=== PATIENT | male | born 1970 | race American Indian/Alaskan Native ===

== ENCOUNTER 2016-11-15 14:53 | Emergency (ER) | payer SELFPAY ==
[2016-11-15 15:23] VITALS: BP 125/78
== END 2016-11-15 16:46 | disposition left against medical advice (07) ==
LOC: ED 14:53
DX: M54.5 Low back pain (principal); Z53.21 Procedure and treatment not carried out due to patient leaving prior to being seen by health care provider

== ENCOUNTER 2016-12-24 09:47 | Emergency (ER) | payer SELFPAY ==
[2016-12-24] MEDS ORDERED: MOTRIN ONE (10:49)
[2016-12-24] MEDS ORDERED: MOTRIN PO ONE (10:56)
--- NOTE | 2016-12-24 13:12 | Emergency Department Report ---
- General Chief Complaint: Upper Respiratory Infection Stated Complaint: FLU LIKE SX Source: patient Mode of arrival: Ambulatory Limitations: No Limitations - History of Present Illness Initial Comments: 46-year-old male comes in for flulike symptoms. Patient reports fevers chills denies any nausea no vomiting. He reports he has chest burning in the epigastric discomfort. This is been going on for a few days. Was noted that his temperature is 102 in triage. He was given antipyretics medication. Patient reports no past medical history of anything significant going takes no medications. MD Complaint: fever, cough - Related Data Previous Rx's Medication Instructions Recorded Last Taken Type Amoxicillin [Amoxicillin TAB] 875 mg PO BID #10 tablet 12/24/16 Unknown Rx Famotidine [Pepcid] 20 mg PO ONCE #30 tablet 12/24/16 Unknown Rx Ibuprofen [Motrin 600 MG tab] 600 mg PO Q8H PRN #60 tablet 12/24/16 Unknown Rx Allergies Allergy/AdvReac Type Severity Reaction Status Date / Time No Known Allergies Allergy Unverified 12/24/16 10:49 ED Review of Systems ROS: Stated complaint: FLU LIKE SX Other details as noted in HPI Constitutional: chills, fever Gastrointestinal: abdominal pain (epigastric tenderness). denies: nausea, vomiting Genitourinary: denies: dysuria Musculoskeletal: denies: back pain Neurological: denies: headache ED Past Medical Hx - Past Medical History Hx Psychiatric Treatment: Yes (anxiety, PTSD, insomnia) Additional medical history: tachycardia - Surgical History Additional Surgical History: R knee, spinal - Social History Smoking Status: Current Every Day Smoker Substance Use Type: None, Alcohol - Medications Home Medications: Home Medications Medication Instructions Recorded Confirmed Last Taken Type Amoxicillin [Amoxicillin TAB] 875 mg PO BID #10 tablet 12/24/16 Unknown Rx Famotidine [Pepcid] 20 mg PO ONCE #30 tablet 12/24/16 Unknown Rx Ibuprofen [Motrin 600 MG tab] 600 mg PO Q8H PRN #60 tablet 12/24/16 Unknown Rx ED Physical Exam - General Limitations: No Limitations General appearance: alert, in no apparent distress - Head Head exam: Present: atraumatic, normocephalic - Eye Eye exam: Present: normal appearance, PERRL, EOMI - ENT ENT exam: Present: mucous membranes moist, TM's normal bilaterally - Neck Neck exam: Present: normal inspection, full ROM. Absent: tenderness, lymphadenopathy - Respiratory Respiratory exam: Present: normal lung sounds bilaterally. Absent: respiratory distress, wheezes, rales, rhonchi - Cardiovascular Cardiovascular Exam: Present: regular rate, normal rhythm, normal heart sounds - GI/Abdominal GI/Abdominal exam: Present: soft, normal bowel sounds. Absent: distended, tenderness ED Course Vital Signs 12/24/16 12/24/16 10:44 14:48 Temperature 102.4 F H 98.2 F Pulse Rate 96 H 80 Respiratory 20 14 Rate Blood Pressure 111/74 Blood Pressure 99/60 [Right] O2 Sat by Pulse 100 99 Oximetry ED Medical Decision Making - Lab Data Result diagrams: 12/24/16 13:28 12/24/16 13:28 - Medical Decision Making Since been evaluated by this provider fast track chest x-ray was done which was normal. Motrin was given to the patient for antipyretic which he reports he feels better. We will place patient on famotidine 40 mg by mouth now and discharge him on famotidine 20 mg daily for a few days and have him follow with the primary care provider. As well as all cover him with amoxicillin for respiratory infection. She verbalized understanding Critical care attestation.: If time is entered above; I have spent that time in minutes in the direct care of this critically ill patient, excluding procedure time. ED Disposition Clinical Impression: Upper respiratory infection Qualifiers: URI type: unspecified URI Qualified Code(s): J06.9 - Acute upper respiratory infection, unspecified Acid reflux Qualifiers: Esophagitis presence: without esophagitis Qualified Code(s): K21.9 - Gastro- esophageal reflux disease without esophagitis Disposition: DISCHARGED TO HOME OR SELFCARE Is pt being admited?: No Does the pt Need Aspirin: No Condition: Stable Instructions: Upper Respiratory Infection (ED), Gastroesophageal Reflux Disease (ED) Additional Instructions: Complete antibiotics as prescribed and take an acid medicine when necessary. Follow-up the primary care provider if symptoms persist. Prescriptions: Amoxicillin [Amoxicillin TAB] 875 mg PO BID #10 tablet Famotidine [Pepcid] 20 mg PO ONCE #30 tablet Ibuprofen [Motrin 600 MG tab] 600 mg PO Q8H PRN #60 tablet PRN Reason: Pain Referrals: PRIMARY CARE,MD [Primary Care Provider] - 3-5 Days [facility] [Outside] - 3-5 Days Forms: Work/School Release Form(ED)
[2016-12-24 13:55] LABS: Hematocrit 40.3 % (35.5-45.6); Hemoglobin 13.2 gm/dl (11.8-15.2); Mean Corpuscular HGB Conc 33 % (32-34); Mean Corpuscular Hemoglobin 31 pg (28-32); Mean Corpuscular Volume 96 fl (84-94); Platelet Count 241 K/mm3 (140-440); Red Blood Count 4.22 M/mm3 (3.65-5.03); Red Cell Distribution Width 13.3 % (13.2-15.2); White Blood Count 7.8 K/mm3 (4.5-11.0)
[2016-12-24 14:13] LABS: Anion Gap 17 mmol/L; Blood Urea Nitrogen 3 mg/dL (9-20); Calcium 8.4 mg/dL (8.4-10.2); Carbon Dioxide 26 mmol/L (22-30); Chloride 98.7 mmol/L (98-107); Glucose 95 mg/dL (75-100); Potassium 3.7 mmol/L (3.6-5.0); Sodium 138 mmol/L (137-145)
--- NOTE | 2016-12-24 15:42 | XRay Report ---
Chest 2 views: History: Chest pain with cough. Findings: Normal cardiomediastinal silhouette no consolidation, pneumothorax or pleural effusion. Impression: No acute cardiopulmonary findings.
[2016-12-24 16:20] VITALS: BP 99/60
[2016-12-24] MEDS ORDERED: PEPCID PO ONE (16:44)
== END 2016-12-24 17:20 | disposition home or self-care (01) ==
LOC: ED 09:47
DX: K21.9 Gastro-esophageal reflux disease without esophagitis (principal); J06.9 Acute upper respiratory infection, unspecified; R00.0 Tachycardia, unspecified; F17.200 Nicotine dependence, unspecified, uncomplicated
CPT/HCPCS: 36415; 71020; 80048; 85027; 87400

== ENCOUNTER 2017-05-26 09:13 | Emergency (ER) | payer SELFPAY ==
[2017-05-26 09:21] VITALS: BP 138/92
[2017-05-26] MEDS ORDERED: MOTRIN PO ONE (10:23)
--- NOTE | 2017-05-26 15:20 | Emergency Department Report ---
Entered by HENNA DE LA ROSA, acting as scribe for ALBANIA MEDINA NP. ED Back Pain/Injury HPI - General Chief Complaint: Back Pain/Injury Stated Complaint: LOWER BACK PAIN Time Seen by Provider: 05/26/17 09:31 Source: patient Mode of arrival: Ambulatory Limitations: No Limitations - History of Present Illness Initial Comments: This is a 46 y/o male patients well-nourished with nontoxic or ill in appearance presents to the ED for evaluation of intermittent right sided thoracic spinal pain that started while working. The pain initially started (3 days ago). 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 The pain is described as sharp, aching and throbbing. Initially the pain was mild, but has progressed and worsened. He denies neck pain, nausea, vomiting , polyuria, urinary urgency, CP, sOB, stiff neck, abd pain, n/v, numbness, tingling, or dysuria. Pt states he felt like he pulled a muscle while at work. He denies injury or trauma. Denies any allergies. Denies PMH. MD Complaint: back pain Onset/Timin -: Gradual, days(s) Similar Symptoms Previously: No Place: work Radiation: none Severity: moderate Quality: sharp, aching, other (throbbing) Consistency: constant Improves With: none Worsens With: none Context: while lifting Associated Symptoms: denies other symptoms. denies: confusion, weakness, chest pain, numbness, difficulty walking, cough, difficulty urinating, diaphoresis, incontinence, fever/chills, constipation, headaches, abdominal pain, loss of appetite, malaise, nausea/vomiting, rash, seizure, shortness of breath, syncope - Related Data Previous Rx's Medication Instructions Recorded Last Taken Type Amoxicillin [Amoxicillin TAB] 875 mg PO BID #10 tablet 12/24/16 Unknown Rx Famotidine [Pepcid] 20 mg PO ONCE #30 tablet 12/24/16 Unknown Rx Ibuprofen [Motrin 600 MG tab] 600 mg PO Q8H PRN #60 tablet 12/24/16 Unknown Rx Cyclobenzaprine [Flexeril] 10 mg PO TID PRN #15 tablet 05/26/17 Unknown Rx Ibuprofen [Motrin 600 MG tab] 600 mg PO Q8H PRN #20 tablet 05/26/17 Unknown Rx Allergies Allergy/AdvReac Type Severity Reaction Status Date / Time No Known Allergies Allergy Unverified 12/24/16 10:49 ED Review of Systems Comment: All other systems reviewed and negative Constitutional: no symptoms reported. denies: chills, fever Eyes: denies: eye pain, eye discharge, vision change ENT: denies: ear pain, throat pain Respiratory: denies: cough, shortness of breath Cardiovascular: denies: chest pain, palpitations Endocrine: no symptoms reported Gastrointestinal: denies: abdominal pain, nausea, vomiting Genitourinary: denies: urgency, dysuria Musculoskeletal: back pain Skin: denies: rash Neurological: denies: headache, weakness, numbness, abnormal gait Psychiatric: denies: anxiety, depression Hematological/Lymphatic: denies: easy bleeding, easy bruising ED Past Medical Hx - Past Medical History Hx Psychiatric Treatment: Yes (anxiety, PTSD, insomnia) Additional medical history: tachycardia - Surgical History Additional Surgical History: R knee, spinal - Social History Smoking Status: Current Every Day Smoker Substance Use Type: Alcohol - Medications Home Medications: Home Medications Medication Instructions Recorded Confirmed Last Taken Type Amoxicillin [Amoxicillin TAB] 875 mg PO BID #10 tablet 12/24/16 Unknown Rx Famotidine [Pepcid] 20 mg PO ONCE #30 tablet 12/24/16 Unknown Rx Ibuprofen [Motrin 600 MG tab] 600 mg PO Q8H PRN #60 tablet 12/24/16 Unknown Rx Cyclobenzaprine [Flexeril] 10 mg PO TID PRN #15 tablet 05/26/17 Unknown Rx Ibuprofen [Motrin 600 MG tab] 600 mg PO Q8H PRN #20 tablet 05/26/17 Unknown Rx ED Physical Exam - General Limitations: No Limitations General appearance: alert, in no apparent distress, other (The patient is a well -developed, well-nourished, in no apparent distress) - Head Head exam: Present: atraumatic, normocephalic - Eye Eye exam: Present: normal appearance, PERRL, EOMI, other (PERRL, Extraocular muscles are intact. Pupils are equal, round, and reactive to light and accommodation.). Absent: scleral icterus, conjunctival injection, nystagmus, periorbital swelling, periorbital tenderness Pupils: Present: normal accommodation - ENT ENT exam: Present: normal exam, normal orophraynx, mucous membranes moist, TM's normal bilaterally, other ( Nares appeared normal. Mouth is well hydrated and without lesions. Mucous membranes are moist. Posterior pharynx clear of any exudate or lesions) - Neck Neck exam: Present: normal inspection, full ROM, other (Supple. No carotid bruits. No lymphadenopathy or thyromegaly.nontender. No meningitic signs are noted.). Absent: tenderness, meningismus, lymphadenopathy - Respiratory Respiratory exam: Present: normal lung sounds bilaterally, other (Clear to auscultation. Non labor breathing. No intercostal retractions.). Absent: respiratory distress, wheezes, rales, rhonchi, stridor, chest wall tenderness, accessory muscle use, decreased breath sounds, prolonged expiratory - Cardiovascular Cardiovascular Exam: Present: regular rate, normal rhythm, normal heart sounds. Absent: bradycardia, tachycardia, irregular rhythm, systolic murmur, diastolic murmur, rubs, gallop - GI/Abdominal GI/Abdominal exam: Present: soft. Absent: distended, tenderness (Positive bowel sounds. No hepatosplenomegaly was noted. No guarding or rebound tenderness, negative epigastric bruit. Negative psoas sign, negative perez sign , negative McBurneys sign), rebound, rigid, normal bowel sounds, diminished bowel sounds - Extremities Exam Extremities exam: Present: normal inspection, full ROM, normal capillary refill , other (Without any cyanosis, clubbing, rash, lesions or edema. Peripheral pulses intact. Capillary refill less than 2 seconds. ). Absent: tenderness, pedal edema, joint swelling, calf tenderness - Back Exam Back exam: Present: normal inspection, full ROM, paraspinal tenderness ( thoracic ). Absent: tenderness, CVA tenderness (R), CVA tenderness (L), muscle spasm, vertebral tenderness, rash noted - Neurological Exam Neurological exam: Present: alert, oriented X3, CN II-XII intact, normal gait, other (Cranial nerves II through XII are grossly intact. Alert and oriented x 3. Normal gait. Symmetrical strength and sensation. Reflexes 2+ throughout. Cerebellar testing normal. GCS score of 15.) - Psychiatric Psychiatric exam: Present: normal affect, normal mood, other ( Normal affect with no suicidal or homicidal ideations.) - Skin Skin exam: Present: warm, dry, intact, other (No ulceration or induration present.). Absent: rash ED Course Vital Signs 05/26/17 09:18 Temperature 98.6 F Pulse Rate 93 H Respiratory 20 Rate Blood Pressure 138/92 O2 Sat by Pulse 100 Oximetry - Reevaluation(s) Reevaluation #1: 05/26/17 10:29 Patient is speaking in full sentences with no signs of distress noted. ED Medical Decision Making - Medical Decision Making Ed course: This is a 46-year-old male that presents with throacic spinal strain 1- patient was examined by myself. Upon exam there was no tenderness over the thoracic or lumbar or cervical spinal region. Paraspinal tenderness to the right side of the thoracic spinal region. I will treat the patient with Flexeril for muscle spasm. Patient also be treated with ibuprofen for pain. Patient received ibuprofen 800 mg by mouth ED . 2- patient was instructed to follow-up with his primary care doctor in 3-5 days or if symptoms worsen bladder or bowel stability, chest pain, short of breath, numbness or tingling sensation in extremities, headache, dizziness, visual changes, nausea vomiting, or abdominal pain, and continue return to the emergency room as was possible. 3- at time time of discharge, the patient does not seem toxic or ill in appearance. No acute signs of distress noted. Patient agrees to discharge treatment plan of care. No further questions noted by the patient. ED Disposition Clinical Impression: Muscle spasm, Strain of thoracic region Disposition: DC-01 TO HOME OR SELFCARE Is pt being admited?: No Does the pt Need Aspirin: No Condition: Stable Instructions: Ibuprofen (By mouth), Muscle Strain (ED), Muscle Spasm (ED) Additional Instructions: follow-up with your primary care doctor in 3-5 days or if symptoms worsen bladder or bowel stability, chest pain, short of breath, numbness or tingling sensation in extremities, headache, dizziness, visual changes, nausea vomiting, or abdominal pain, and continue return to the emergency room as was possible. Take ibuprofen and Flexeril as prescribed. Do not operate heavy machinery while taking Flexeril due to sedation Prescriptions: Cyclobenzaprine [Flexeril] 10 mg PO TID PRN #15 tablet PRN Reason: Muscle Spasm Ibuprofen [Motrin 600 MG tab] 600 mg PO Q8H PRN #20 tablet PRN Reason: Pain Referrals: PRIMARY CARE, [Primary Care Provider] - 3-5 Days CAROLE ROSENTHAL JR, MD [Staff Physician] - 3-5 Days [facility] [Outside] - 3-5 Days [facility] [Outside] - 3-5 Days Forms: Work/School Release Form(ED) This documentation as recorded by the ESTRELLA stiles SHALANE,accurately reflects the service I personally performed and the decisions made by me,ALBANIA MEDINA, VP [employer].
== END 2017-05-26 11:14 | disposition home or self-care (01) ==
LOC: ED 09:13
DX: S29.012A Strain of muscle and tendon of back wall of thorax, initial encounter (principal); F41.9 Anxiety disorder, unspecified; F17.210 Nicotine dependence, cigarettes, uncomplicated; X50.0XXA Overexertion from strenuous movement or load, initial encounter; Y93.89 Activity, other specified; Y92.89 Other specified places as the place of occurrence of the external cause; Y99.8 Other external cause status
CPT/HCPCS: 99282

== ENCOUNTER 2017-07-16 08:04 | Emergency (ER) | payer SELFPAY ==
[2017-07-16 08:49] LABS: Bilirubin,Urine NEG (Negative); Blood,Urine NEG (Negative); Ketones,Urine TR mg/dL (Negative); Leukocyte Esterase,Urine NEG (Negative); Mucus,Urine FEW /HPF; Nitrite,Urine NEG (Negative); Urobilinogen,Urine < 2.0 mg/dL (<2.0)
[2017-07-16 09:02] LABS: Basophils % (Auto) 0.5 % (0.0-1.8); Eosinophils % (Auto) 0.5 % (0.0-4.3); Hematocrit 41.4 % (35.5-45.6); Hemoglobin 14.1 gm/dl (11.8-15.2); Mean Corpuscular HGB Conc 34 % (32-34); Mean Corpuscular Hemoglobin 32 pg (28-32); Mean Corpuscular Volume 93 fl (84-94); Platelet Count 400 K/mm3 (140-440); Red Blood Count 4.43 M/mm3 (3.65-5.03); Red Cell Distribution Width 13.7 % (13.2-15.2)
[2017-07-16 09:45] LABS: Alanine Aminotransferase 13 units/L (7-56); Albumin 3.8 g/dL (3.9-5); Alkaline Phosphatase 105 units/L (35-129); Anion Gap 17 mmol/L; BUN/Creatinine Ratio 14.28; Blood Urea Nitrogen 10 mg/dL (9-20); Calcium 8.2 mg/dL (8.4-10.2); Carbon Dioxide 22 mmol/L (22-30); Chloride 101.5 mmol/L (98-107); Glucose 96 mg/dL (75-100); Lipase 24 units/L (13-60); Potassium 3.4 mmol/L (3.6-5.0); Sodium 137 mmol/L (137-145); Total Protein 7.6 g/dL (6.3-8.2)
--- NOTE | 2017-07-16 11:26 | Emergency Department Report ---
ED Abdominal Pain HPI - General Chief Complaint: Abdominal Pain Stated Complaint: ABD PAIN/DIARRHEA Time Seen by Provider: 07/16/17 11:23 Source: patient Mode of arrival: Ambulatory Limitations: No Limitations - History of Present Illness Initial Comments: Patient states that he was seen in the emergency department at [facility] 2 weeks ago for similar symptoms. He complains of epigastric abdominal pain associated with watery diarrhea. He states this had diarrhea twice over the last 24 hours which is generally soon after eating. He does not complain of nausea at this time. He denies any recent fever. He states he had an HIV test done last year. He does have a primary care physician. He has been here several times for what appeared to be primary care type complaints. He denies any history of chronic GI problems. MD Complaint: abdominal pain -: week(s) Location: epigastric Radiation: none Migration to: no migration Severity: moderate Quality: aching Consistency: intermittent Improves With: nothing, bowel movement Associated Symptoms: diarrhea - Related Data Previous Rx's Medication Instructions Recorded Last Taken Type Amoxicillin [Amoxicillin TAB] 875 mg PO BID #10 tablet 12/24/16 Unknown Rx Famotidine [Pepcid] 20 mg PO ONCE #30 tablet 12/24/16 Unknown Rx Ibuprofen [Motrin 600 MG tab] 600 mg PO Q8H PRN #60 tablet 12/24/16 Unknown Rx Cyclobenzaprine [Flexeril] 10 mg PO TID PRN #15 tablet 05/26/17 Unknown Rx Ibuprofen [Motrin 600 MG tab] 600 mg PO Q8H PRN #20 tablet 05/26/17 Unknown Rx Loperamide [Imodium] 2 mg PO Q6HR PRN #7 capsule 07/16/17 Unknown Rx traMADol [Ultram] 50 mg PO Q6HR PRN #10 tablet 07/16/17 Unknown Rx Allergies Allergy/AdvReac Type Severity Reaction Status Date / Time No Known Allergies Allergy Unverified 12/24/16 10:49 ED Review of Systems ROS: Stated complaint: ABD PAIN/DIARRHEA Other details as noted in HPI Constitutional: denies: chills, fever Eyes: denies: eye pain, eye discharge, vision change ENT: denies: ear pain, throat pain Respiratory: denies: cough, shortness of breath, wheezing Cardiovascular: denies: chest pain, palpitations Endocrine: no symptoms reported Gastrointestinal: as per HPI, abdominal pain, diarrhea. denies: nausea Genitourinary: denies: urgency, dysuria Musculoskeletal: denies: back pain, joint swelling, arthralgia Skin: denies: rash, lesions Neurological: denies: headache, weakness, paresthesias Psychiatric: denies: anxiety, depression Hematological/Lymphatic: denies: easy bleeding, easy bruising ED Past Medical Hx - Past Medical History Previous Medical History?: Yes Hx Psychiatric Treatment: Yes (anxiety, PTSD, insomnia, depression) Additional medical history: tachycardia - Surgical History Past Surgical History?: Yes Additional Surgical History: R knee x2. cervical spine surgery. Hernia repair - Social History Smoking Status: Current Every Day Smoker Substance Use Type: None - Medications Home Medications: Home Medications Medication Instructions Recorded Confirmed Last Taken Type Amoxicillin [Amoxicillin TAB] 875 mg PO BID #10 tablet 12/24/16 Unknown Rx Famotidine [Pepcid] 20 mg PO ONCE #30 tablet 12/24/16 Unknown Rx Ibuprofen [Motrin 600 MG tab] 600 mg PO Q8H PRN #60 tablet 12/24/16 Unknown Rx Cyclobenzaprine [Flexeril] 10 mg PO TID PRN #15 tablet 05/26/17 Unknown Rx Ibuprofen [Motrin 600 MG tab] 600 mg PO Q8H PRN #20 tablet 05/26/17 Unknown Rx Loperamide [Imodium] 2 mg PO Q6HR PRN #7 capsule 07/16/17 Unknown Rx traMADol [Ultram] 50 mg PO Q6HR PRN #10 tablet 07/16/17 Unknown Rx ED Physical Exam - General Limitations: No Limitations General appearance: alert, in no apparent distress, other (appears a bit volume depleted) - Head Head exam: Present: atraumatic, normocephalic - Eye Eye exam: Present: normal appearance, PERRL, EOMI. Absent: scleral icterus - ENT ENT exam: Present: mucous membranes moist - Neck Neck exam: Present: normal inspection. Absent: tenderness, meningismus - Respiratory Respiratory exam: Present: normal lung sounds bilaterally. Absent: respiratory distress - Cardiovascular Cardiovascular Exam: Present: regular rate, normal rhythm. Absent: systolic murmur, diastolic murmur, rubs, gallop - GI/Abdominal GI/Abdominal exam: Present: soft, normal bowel sounds. Absent: distended, tenderness, guarding, rebound, rigid - Rectal Rectal exam: Present: deferred - Extremities Exam Extremities exam: Present: normal inspection - Back Exam Back exam: Present: normal inspection - Neurological Exam Neurological exam: Present: alert, oriented X3, CN II-XII intact. Absent: motor sensory deficit - Psychiatric Psychiatric exam: Present: normal affect, normal mood - Skin Skin exam: Present: warm, dry, intact, normal color. Absent: rash ED Course Vital Signs 07/16/17 08:19 Temperature 98.4 F Pulse Rate 103 H Respiratory 18 Rate Blood Pressure 123/81 O2 Sat by Pulse 99 Oximetry - Reevaluation(s) Reevaluation #1: Patient without active complaints. Playing on his cell phone. Exam is benign. Improved after a liter of fluid. Given oral potassium. For her to the [facility] for follow-up. Could not produce stool specimen. 07/16/17 13:02 ED Medical Decision Making - Lab Data Result diagrams: 07/16/17 08:37 07/16/17 08:37 Laboratory Results - last 24 hr 07/16/17 07/16/17 07/16/17 08:23 08:37 08:37 WBC 13.0 H RBC 4.43 Hgb 14.1 Hct 41.4 MCV 93 MCH 32 MCHC 34 RDW 13.7 Plt Count 400 Lymph % (Auto) 16.8 Pender % (Auto) 8.6 H Eos % (Auto) 0.5 Baso % (Auto) 0.5 Lymph # 2.2 Pender # 1.1 H Eos # 0.1 Baso # 0.1 Seg Neutrophils % 73.6 H Seg Neutrophils # 9.5 H Sodium 137 Potassium 3.4 L Chloride 101.5 Carbon Dioxide 22 Anion Gap 17 BUN 10 Creatinine 0.7 L Estimated GFR > 60 BUN/Creatinine Ratio 14.28 Glucose 96 Calcium 8.2 L Total Bilirubin 0.50 AST 20 ALT 13 Alkaline Phosphatase 105 Total Protein 7.6 Albumin 3.8 L Albumin/Globulin Ratio 1.0 Lipase 24 Urine Color Yellow Urine Turbidity Clear Urine pH 5.0 Ur Specific [place] 1.030 Urine Protein 30 mg/dl Urine Glucose (UA) Neg Urine Ketones Tr Urine Blood Neg Urine Nitrite Neg Urine Bilirubin Neg Urine Urobilinogen < 2.0 Ur Leukocyte Esterase Neg Urine WBC (Auto) 3.0 Urine RBC (Auto) 8.0 U Epithel Cells (Auto) < 1.0 Urine Mucus Few Critical care attestation.: If time is entered above; I have spent that time in minutes in the direct care of this critically ill patient, excluding procedure time. ED Disposition Clinical Impression: Dehydration, Hypokalemia Diarrhea Qualifiers: Diarrhea type: unspecified type Qualified Code(s): R19.7 - Diarrhea, unspecified Abdominal pain Qualifiers: Abdominal location: unspecified location Qualified Code(s): R10.9 - Unspecified abdominal pain Disposition: TO HOME OR SELFCARE Is pt being admited?: No Does the pt Need Aspirin: No Condition: Stable Instructions: Gastroenteritis (ED), Dehydration (ED), Hypokalemia (ED) Additional Instructions: Follow-up with primary care physician. Return any acute change or problem. Rx as directed. Prescriptions: Loperamide [Imodium] 2 mg PO Q6HR PRN #7 capsule PRN Reason: Diarrhea traMADol [Ultram] 50 mg PO Q6HR PRN #10 tablet PRN Reason: Pain Referrals: PRIMARY CARE, [Primary Care Provider] - 3-5 Days [facility] [Provider Group] - 3-5 Days Time of Disposition: 13:06
[2017-07-16] MEDS: NACL 0.9% 1000 ML 1,000 ML IV ONE (12:06)
[2017-07-16] MEDS: TORADOL IV ONE (12:06)
[2017-07-16] MEDS: K-DUR PO ONE (13:53)
[2017-07-16 14:22] VITALS: BP 128/78
== END 2017-07-16 14:22 | disposition home or self-care (01) ==
LOC: ED 08:04
DX: E87.6 Hypokalemia (principal); R19.7 Diarrhea, unspecified; R10.9 Unspecified abdominal pain; F32.9 Major depressive disorder, single episode, unspecified; F41.9 Anxiety disorder, unspecified; F17.200 Nicotine dependence, unspecified, uncomplicated; F43.10 Post-traumatic stress disorder, unspecified
CPT/HCPCS: 36415; 80053; 81001; 83690; 84439; 84443; 85025; 96361; 96374; 99283; J1885; J7030

== ENCOUNTER 2017-07-26 11:14 | Emergency (ER) | payer SELFPAY ==
[2017-07-26 13:01] LABS: Basophils % (Auto) 0.2 % (0.0-1.8); Eosinophils % (Auto) 0.9 % (0.0-4.3); Hematocrit 42.6 % (35.5-45.6); Hemoglobin 14.3 gm/dl (11.8-15.2); Mean Corpuscular HGB Conc 34 % (32-34); Mean Corpuscular Hemoglobin 32 pg (28-32); Mean Corpuscular Volume 94 fl (84-94); Platelet Count 372 K/mm3 (140-440); Red Blood Count 4.55 M/mm3 (3.65-5.03); Red Cell Distribution Width 13.9 % (13.2-15.2)
[2017-07-26 13:04] LABS: Bilirubin,Urine NEG (Negative); Blood,Urine NEG (Negative); Ketones,Urine NEG (Negative); Leukocyte Esterase,Urine TR (Negative); Mucus,Urine 1+ /HPF; Nitrite,Urine NEG (Negative); Urobilinogen,Urine < 2.0 mg/dL (<2.0)
[2017-07-26 13:10] LABS: Alanine Aminotransferase 16 units/L (7-56); Albumin 4.1 g/dL (3.9-5); Albumin/Globulin Ratio 1.1 %; Alkaline Phosphatase 112 units/L (35-129); Anion Gap 17 mmol/L; Blood Urea Nitrogen 6 mg/dL (9-20); Calcium 8.8 mg/dL (8.4-10.2); Carbon Dioxide 22 mmol/L (22-30); Chloride 101.8 mmol/L (98-107); Glucose 69 mg/dL (75-100); Lipase 53 units/L (13-60); Potassium 3.3 mmol/L (3.6-5.0); Sodium 137 mmol/L (137-145); Total Protein 7.9 g/dL (6.3-8.2)
[2017-07-26 19:33] VITALS: BP 109/73
[2017-07-26] MEDS ORDERED: MAG-OX PO ONE (20:35)
[2017-07-26] MEDS ORDERED: K-DUR PO ONE (20:35)
[2017-07-26] MEDS ORDERED: PEPCID IV ONE (20:43)
[2017-07-26] MEDS ORDERED: TORADOL IV ONE (20:43)
[2017-07-26] MEDS ORDERED: ZOFRAN IV ONE (20:43)
[2017-07-26] MEDS ORDERED: BENTYL PO ONE (20:43)
[2017-07-26] MEDS ORDERED: CARAFATE PO ONE (20:43)
[2017-07-26] MEDS ORDERED: NACL 0.9% 1000 ML 1,000 ML IV ONE (20:43)
--- NOTE | 2017-07-26 20:44 | Emergency Department Report ---
ED Abdominal Pain HPI - General Chief Complaint: Abdominal Pain Stated Complaint: ABDOMINAL PAIN Time Seen by Provider: 07/26/17 20:34 Source: patient, RN notes reviewed, old records reviewed Mode of arrival: Ambulatory Limitations: No Limitations - History of Present Illness Initial Comments: This is a 46-year-old male, the patient is previously unknown to me, the patient does not have a local primary care doctor, reports a past medical history of PTSD and anxiety. Patient has a history of abdominal wall surgery with hernia mesh. Patient presents to the ER with complaint of abdominal pain. Abdominal pain is in the right lower quadrant and right flank. It has been present for 3-4 months. Positive nausea, positive episodes of green/blue diarrhea. No fevers or chills, no chest pain or shortness of breath, no testicular pain, no irritative or obstructive urinary symptoms. The abdominal pain is achy and sharp, it increases with palpation and range of motion, and it decreases with rest. MD Complaint: abdominal pain -: Gradual Location: RLQ, R flank Severity: moderate Severity scale (0 -10): 6 Quality: cramping, aching Consistency: intermittent Improves With: movement, rest Associated Symptoms: nausea, diarrhea. denies: dysuria - Related Data Previous Rx's Medication Instructions Recorded Last Taken Type Amoxicillin [Amoxicillin TAB] 875 mg PO BID #10 tablet 12/24/16 Unknown Rx Famotidine [Pepcid] 20 mg PO ONCE #30 tablet 12/24/16 Unknown Rx Ibuprofen [Motrin 600 MG tab] 600 mg PO Q8H PRN #60 tablet 12/24/16 Unknown Rx Cyclobenzaprine [Flexeril] 10 mg PO TID PRN #15 tablet 05/26/17 Unknown Rx Ibuprofen [Motrin 600 MG tab] 600 mg PO Q8H PRN #20 tablet 05/26/17 Unknown Rx Loperamide [Imodium] 2 mg PO Q6HR PRN #7 capsule 07/16/17 Unknown Rx traMADol [Ultram] 50 mg PO Q6HR PRN #10 tablet 07/16/17 Unknown Rx Dicyclomine [Bentyl] 10 mg PO QID PRN #20 capsule 07/26/17 Unknown Rx Ondansetron [Zofran Odt] 4 mg PO QID PRN #20 tab.rapdis 07/26/17 Unknown Rx Allergies Allergy/AdvReac Type Severity Reaction Status Date / Time No Known Allergies Allergy Verified 07/26/17 20:42 ED Review of Systems ROS: Stated complaint: ABDOMINAL PAIN Other details as noted in HPI Constitutional: malaise. denies: fever Eyes: denies: eye discharge ENT: denies: epistaxis Respiratory: denies: cough Cardiovascular: denies: chest pain Gastrointestinal: abdominal pain, diarrhea Genitourinary: denies: dysuria, testicular pain Musculoskeletal: denies: back pain Skin: denies: lesions Neurological: denies: headache, weakness Psychiatric: anxiety ED Past Medical Hx - Past Medical History Previous Medical History?: Yes Hx Psychiatric Treatment: Yes (anxiety, PTSD, insomnia, depression) Additional medical history: tachycardia - Surgical History Additional Surgical History: R knee x2. cervical spine surgery. Hernia repair - Social History Smoking Status: Current Every Day Smoker Substance Use Type: None - Medications Home Medications: Home Medications Medication Instructions Recorded Confirmed Last Taken Type Amoxicillin [Amoxicillin TAB] 875 mg PO BID #10 tablet 12/24/16 Unknown Rx Famotidine [Pepcid] 20 mg PO ONCE #30 tablet 12/24/16 Unknown Rx Ibuprofen [Motrin 600 MG tab] 600 mg PO Q8H PRN #60 tablet 12/24/16 Unknown Rx Cyclobenzaprine [Flexeril] 10 mg PO TID PRN #15 tablet 05/26/17 Unknown Rx Ibuprofen [Motrin 600 MG tab] 600 mg PO Q8H PRN #20 tablet 05/26/17 Unknown Rx Loperamide [Imodium] 2 mg PO Q6HR PRN #7 capsule 07/16/17 Unknown Rx traMADol [Ultram] 50 mg PO Q6HR PRN #10 tablet 07/16/17 Unknown Rx Dicyclomine [Bentyl] 10 mg PO QID PRN #20 capsule 07/26/17 Unknown Rx Ondansetron [Zofran Odt] 4 mg PO QID PRN #20 tab.rapdis 07/26/17 Unknown Rx ED Physical Exam - General Limitations: No Limitations General appearance: alert, in no apparent distress - Head Head exam: Present: atraumatic, normocephalic - Eye Eye exam: Present: normal appearance, EOMI. Absent: nystagmus - ENT ENT exam: Present: normal exam, normal orophraynx, mucous membranes moist, normal external ear exam - Neck Neck exam: Present: normal inspection, full ROM. Absent: tenderness, meningismus - Respiratory Respiratory exam: Present: normal lung sounds bilaterally. Absent: respiratory distress, wheezes, rales, rhonchi, stridor, chest wall tenderness, accessory muscle use, decreased breath sounds, prolonged expiratory - Cardiovascular Cardiovascular Exam: Present: regular rate, normal rhythm, normal heart sounds. Absent: bradycardia, tachycardia, irregular rhythm, systolic murmur, diastolic murmur, rubs, gallop - GI/Abdominal GI/Abdominal exam: Present: soft, tenderness, normal bowel sounds, other (there is mild suprapubic and right lower quadrant tenderness, there is no rebound, guarding or peritoneal signs.). Absent: distended, guarding, rebound, rigid, pulsatile mass - Rectal Rectal exam: Present: deferred - Extremities Exam Extremities exam: Present: normal inspection, full ROM, normal capillary refill , other (Extraocular movements intact. Tongue midline. No facial droop. Facial sensation intact to light touch in the V1, V2, V3 distribution bilaterally. 5 and 5 strength in 4 extremities.. Sensation is intact to light touch in 4 extremities.). Absent: pedal edema, joint swelling, calf tenderness - Back Exam Back exam: Present: normal inspection - Neurological Exam Neurological exam: Present: alert, oriented X3, normal gait, other (Extraocular movements intact. Tongue midline. No facial droop. Facial sensation intact to light touch in the V1, V2, V3 distribution bilaterally. 5 and 5 strength in 4 extremities.. Sensation is intact to light touch in 4 extremities.). Absent : motor sensory deficit - Psychiatric Psychiatric exam: Present: normal affect, normal mood - Skin Skin exam: Present: warm, dry, intact, normal color. Absent: rash ED Course Vital Signs 07/26/17 07/26/17 12:05 19:31 Temperature 97.8 F Pulse Rate 94 H 91 H Respiratory 16 16 Rate Blood Pressure 113/83 Blood Pressure 109/73 [Left] O2 Sat by Pulse 98 97 Oximetry ED Medical Decision Making - Lab Data Result diagrams: 07/26/17 12:27 07/26/17 12:27 Vital Signs 07/26/17 07/26/17 12:05 19:31 Temperature 97.8 F Pulse Rate 94 H 91 H Respiratory 16 16 Rate Blood Pressure 113/83 Blood Pressure 109/73 [Left] O2 Sat by Pulse 98 97 Oximetry Lab Results 07/26/17 07/26/17 07/26/17 Range/Units 12:27 12:27 Unknown WBC 11.0 (4.5-11.0) K/mm3 RBC 4.55 (3.65-5.03) M/mm3 Hgb 14.3 (11.8-15.2) gm/dl Hct 42.6 (35.5-45.6) % MCV 94 (84-94) fl MCH 32 (28-32) pg MCHC 34 (32-34) % RDW 13.9 (13.2-15.2) % Plt Count 372 (140-440) K/mm3 Lymph % (Auto) 19.8 (13.4-35.0) % [place] % (Auto) 9.1 H (0.0-7.3) % Eos % (Auto) 0.9 (0.0-4.3) % Baso % (Auto) 0.2 (0.0-1.8) % Lymph # 2.2 (1.2-5.4) K/mm3 [place] # 1.0 H (0.0-0.8) K/mm3 Eos # 0.1 (0.0-0.4) K/mm3 Baso # 0.0 (0.0-0.1) K/mm3 Seg Neutrophils % 70.0 (40.0-70.0) % Seg Neutrophils # 7.7 (1.8-7.7) K/mm3 Sodium 137 (137-145) mmol/L Potassium 3.3 L (3.6-5.0) mmol/L Chloride 101.8 (98-107) mmol/L Carbon Dioxide 22 (22-30) mmol/L Anion Gap 17 mmol/L BUN 6 L (9-20) mg/dL Creatinine 0.8 (0.8-1.5) mg/dL Estimated GFR > 60 ml/min BUN/Creatinine Ratio 7.50 % Glucose 69 L (75-100) mg/dL Calcium 8.8 (8.4-10.2) mg/dL Total Bilirubin 0.50 (0.1-1.2) mg/dL AST 19 (5-40) units/L ALT 16 (7-56) units/L Alkaline Phosphatase 112 (35-129) units/L Total Protein 7.9 (6.3-8.2) g/dL Albumin 4.1 (3.9-5) g/dL Albumin/Globulin Ratio 1.1 % Lipase 53 (13-60) units/L Urine Color Yellow (Yellow) Urine Turbidity Clear (Clear) Urine pH 5.0 (5.0-7.0) Ur Specific [place] 1.027 (1.003-1.030) Urine Protein 30 mg/dl (Negative) mg/dL Urine Glucose (UA) Neg (Negative) mg/dL Urine Ketones Neg (Negative) mg/dL Urine Blood Neg (Negative) Urine Nitrite Neg (Negative) Urine Bilirubin Neg (Negative) Urine Urobilinogen < 2.0 (<2.0) mg/dL Ur Leukocyte Esterase Tr (Negative) Urine WBC (Auto) 5.0 (0.0-6.0) /HPF Urine RBC (Auto) 5.0 (0.0-6.0) /HPF U Epithel Cells (Auto) < 1.0 (0-13.0) /HPF Calcium Oxalate Crystal 1+ Urine Mucus 1+ /HPF - Radiology Data Radiology results: report reviewed, image reviewed CT scan of the abdomen and pelvis with IV contrast is negative for acute disease. Incidental left-sided kidney stone is noted. The appendix is normal. - Medical Decision Making Differential diagnosis: Irritable bowel disease, inflammatory bowel disease, malignancy, appendicitis, colitis, diverticulitis Assessment and plan: 46-year-old male with acute on chronic abdominal pain, minimal right lower quadrant tenderness, laboratory studies unremarkable with exception of mild hypokalemia, patient able to tolerate liquid feeds, felt improved after symptomatic therapy, and a CT scan abdomen and pelvis was negative for significant disease, patient will be discharged with nonnarcotic pain medication, nausea medication, and he is suitable to follow-up with an outpatient primary care doctor or community service representative. Critical care attestation.: If time is entered above; I have spent that time in minutes in the direct care of this critically ill patient, excluding procedure time. ED Disposition Clinical Impression: Abdominal pain, Hypokalemia Disposition: - TO HOME OR SELFCARE Is pt being admited?: No Does the pt Need Aspirin: No Condition: Stable Instructions: Abdominal Pain (ED) Additional Instructions: Take the medications as directed. Follow-up with a primary care doctor or community service representative within the next 2-3 weeks. [facility] has a patient service hotline; 3.472.GO.TOCHINO ([phone]) Return to the ER right away with new pain, worsened pain, migration of pain, fevers, chills, confusion, intractable nausea or vomiting, inability to tolerate liquid feeds. Prescriptions: Dicyclomine [Bentyl] 10 mg PO QID PRN #20 capsule PRN Reason: Pain Ondansetron [Zofran Odt] 4 mg PO QID PRN #20 tab.rapdis PRN Reason: Nausea Referrals: PRIMARY CARE, [Primary Care Provider] - 3-5 Days FREDDY CARRERA MD [Staff Physician] - 3-5 Days LAURIE PALACIO MD [Staff Physician] - 3-5 Days Forms: Accompanied Note, Work/School Release Form(ED)
--- NOTE | 2017-07-26 21:42 | Cat Scan Report ---
FINAL REPORT PROCEDURE: CT ABDOMEN PELVIS W CON TECHNIQUE: Computerized axial tomography of the abdomen and pelvis was performed after the IV injection of iodinated nonionic contrast. HISTORY: lower abd pain COMPARISON: No prior studies are available for comparison. FINDINGS: Visualized lower thorax: No significant abnormality. Liver: Normal size and attenuation. Spleen: Normal size and attenuation. Gallbladder and biliary system: Normal. Pancreas: Normal. Adrenals: Normal. Kidneys: Lower pole stone of the left kidney measuring 0.2 cm. No hydronephrosis. GI tract: Fluid in nondistended loops of large and small bowel. Appendix is normal. Lymph nodes and mesentery: Normal. Vasculature: Normal. Bladder: Normal. Reproductive organs: Calcifications of the prostate gland. Peritoneum: No free fluid. Musculoskeletal structures: No significant abnormality. Other: None. IMPRESSION: Left renal stone. No hydronephrosis. Normal appendix.
== END 2017-07-26 23:30 | disposition home or self-care (01) ==
LOC: ED 11:14
DX: R10.31 Right lower quadrant pain (principal); E87.6 Hypokalemia; R11.0 Nausea; F17.200 Nicotine dependence, unspecified, uncomplicated
CPT/HCPCS: 36415; 74177; 80053; 81001; 83690; 85025; 96361; 96374; 96375; 99284; J1885; J2405; J7030; Q9967

== ENCOUNTER 2017-08-05 08:32 | Emergency (ER) | payer SELFPAY ==
[2017-08-05 09:21] LABS: Basophils % (Auto) 0.3 % (0.0-1.8); Eosinophils % (Auto) 0.9 % (0.0-4.3); Hematocrit 47.9 % (35.5-45.6); Hemoglobin 15.4 gm/dl (11.8-15.2); Mean Corpuscular HGB Conc 32 % (32-34); Mean Corpuscular Hemoglobin 31 pg (28-32); Mean Corpuscular Volume 97 fl (84-94); Platelet Count 393 K/mm3 (140-440); Red Blood Count 4.92 M/mm3 (3.65-5.03); Red Cell Distribution Width 14.9 % (13.2-15.2)
[2017-08-05 09:38] LABS: Alanine Aminotransferase 23 units/L (7-56); Albumin 4.2 g/dL (3.9-5); Alkaline Phosphatase 126 units/L (35-129); Anion Gap 17 mmol/L; BUN/Creatinine Ratio 7.27; Blood Urea Nitrogen 8 mg/dL (9-20); Calcium 9.3 mg/dL (8.4-10.2); Carbon Dioxide 20 mmol/L (22-30); Chloride 104.7 mmol/L (98-107); Glucose 89 mg/dL (75-100); Lipase 38 units/L (13-60); Potassium 3.9 mmol/L (3.6-5.0); Sodium 138 mmol/L (137-145); Total Protein 8.3 g/dL (6.3-8.2)
[2017-08-05 10:00] LABS: Bacteria,Urine 1+ /HPF (Negative); Bilirubin,Urine NEG (Negative); Blood,Urine SM (Negative); Granular Casts,Urine 20 /LPF; Ketones,Urine NEG (Negative); Leukocyte Esterase,Urine NEG (Negative); Nitrite,Urine NEG (Negative); Urobilinogen,Urine < 2.0 mg/dL (<2.0)
[2017-08-05] MEDS ORDERED: MORPHINE IV ONE (11:56)
--- NOTE | 2017-08-05 12:05 | Emergency Department Report ---
HPI - General Chief Complaint: Abdominal Pain Time Seen by Provider: 08/05/17 11:18 - HPI HPI: Patient is a 46-year-old male presents to ED complaining of abdominal pain for the past month. Patient states about a month ago he started experiencing loose watery stools at school from brown to clear, nonbloody. Patient states he's also had some vomiting episodes since a month ago. Patient is a stress vomiting episode was Saturday 3 days ago. Patient also complains of some weight loss in the past month. Patient states her is unable to keep any foods down. He denies fever, chills, chest pain ED Past Medical Hx - Past Medical History Hx Psychiatric Treatment: Yes (anxiety, PTSD, insomnia, depression) Additional medical history: tachycardia - Surgical History Additional Surgical History: R knee x2. cervical spine surgery. Hernia repair - Social History Smoking Status: Current Every Day Smoker Substance Use Type: None - Medications Home Medications: Home Medications Medication Instructions Recorded Confirmed Last Taken Type Amoxicillin [Amoxicillin TAB] 875 mg PO BID #10 tablet 12/24/16 Unknown Rx Famotidine [Pepcid] 20 mg PO ONCE #30 tablet 12/24/16 Unknown Rx Ibuprofen [Motrin 600 MG tab] 600 mg PO Q8H PRN #60 tablet 12/24/16 Unknown Rx Cyclobenzaprine [Flexeril] 10 mg PO TID PRN #15 tablet 05/26/17 Unknown Rx Ibuprofen [Motrin 600 MG tab] 600 mg PO Q8H PRN #20 tablet 05/26/17 Unknown Rx Dicyclomine [Bentyl] 10 mg PO QID PRN #20 capsule 07/26/17 Unknown Rx Loperamide [Imodium] 2 mg PO Q6HR PRN #7 capsule 08/05/17 Unknown Rx Ondansetron [Zofran Odt] 4 mg PO QID PRN #20 tab.rapdis 08/05/17 Unknown Rx traMADol [Ultram 50 MG tab] 50 mg PO Q6HR PRN #10 tablet 08/05/17 Unknown Rx ED Review of Systems ROS: Stated complaint: STOMACH PAIN Other details as noted in HPI Constitutional: denies: chills, fever Eyes: denies: eye pain, eye discharge, vision change ENT: denies: ear pain, throat pain Respiratory: denies: cough, shortness of breath, wheezing Cardiovascular: denies: chest pain, palpitations Endocrine: no symptoms reported Gastrointestinal: nausea, diarrhea. denies: abdominal pain Genitourinary: denies: urgency, dysuria Musculoskeletal: denies: back pain, joint swelling, arthralgia Skin: denies: rash, lesions Neurological: denies: headache, weakness, paresthesias, confusion Psychiatric: denies: anxiety, depression Hematological/Lymphatic: denies: easy bleeding, easy bruising Physical Exam - Physical Exam Vital Signs: Vital Signs 08/05/17 08:36 Temperature 98.3 F Pulse Rate 107 H Respiratory 16 Rate Blood Pressure 107/79 [Right] O2 Sat by Pulse 100 Oximetry Physical Exam: GENERAL: Alert and oriented x3, no apparent distress, Normal Gait, atraumatic. HEAD: Head is normocephalic and a-traumatic. EYES: Extra ocular muscles are intact. Pupils are equal, round, and reactive to light and accommodation. EARS: symetrical, atraumatic, non tender, ear canal clear and moderate cerumen, tympanic membrance non inflamed. gross auditory nml bilaterally. NOSE: Nose symetrical, Nontender,Nares appeared normal. MOUTH:Mouth is well hydrated and without lesions. Tonsils nonerythematous or swollen, Uvula midline, Tongue not elevated. Mucous membranes are moist. Posterior pharynx clear, no exudate or lesions. Patent airways. NECK: Supple. Non edematous, No carotid bruits. No lymphadenopathy or thyromegaly. No C-spine tenderness LUNGS: Symetrical with respiration, No wheezing, no rales or crackles, CTAB. HEART: S1, S2 present, regular rate and rhythm without murmur, no rubs, no gallops. Non tender to palpation ABDOMEN: No organomegaly was noted,Positive bowel sounds, soft, and non- distended. . Nontender to palpation on all Quadrants, NO CVA tenderness. BACK: Full range of motion, no spinal tenderness, nontender to palpation. NEUROLOGIC: The patient is cooperative with no focal neurologic deficits. Cranial nerves II through XII are grossly intact. Normal speech. Normal sensation in bilateral upper and lower extremities, No loss of sensation, PSYCHIATRIC: Mood is congruent with affect, denies suicidal or homicidal ideations. SKIN: Warm and dry, No lesions, No ulceration or induration present. ED Course Vital Signs 08/05/17 08:36 Temperature 98.3 F Pulse Rate 107 H Respiratory 16 Rate Blood Pressure 107/79 [Right] O2 Sat by Pulse 100 Oximetry ED Medical Decision Making - Lab Data Result diagrams: 08/05/17 08:54 08/05/17 08:54 Laboratory Last Values WBC 11.0 K/mm3 (4.5-11.0) 08/05/17 08:54 RBC 4.92 M/mm3 (3.65-5.03) 08/05/17 08:54 Hgb 15.4 gm/dl (11.8-15.2) H 08/05/17 08:54 Hct 47.9 % (35.5-45.6) H 08/05/17 08:54 MCV 97 fl (84-94) H 08/05/17 08:54 MCH 31 pg (28-32) 08/05/17 08:54 MCHC 32 % (32-34) 08/05/17 08:54 RDW 14.9 % (13.2-15.2) 08/05/17 08:54 Plt Count 393 K/mm3 (140-440) 08/05/17 08:54 Lymph % (Auto) 22.9 % (13.4-35.0) 08/05/17 08:54 [place] % (Auto) 11.3 % (0.0-7.3) H 08/05/17 08:54 Eos % (Auto) 0.9 % (0.0-4.3) 08/05/17 08:54 Baso % (Auto) 0.3 % (0.0-1.8) 08/05/17 08:54 Lymph # 2.5 K/mm3 (1.2-5.4) 08/05/17 08:54 [place] # 1.2 K/mm3 (0.0-0.8) H 08/05/17 08:54 Eos # 0.1 K/mm3 (0.0-0.4) 08/05/17 08:54 Baso # 0.0 K/mm3 (0.0-0.1) 08/05/17 08:54 Seg Neutrophils % 64.6 % (40.0-70.0) 08/05/17 08:54 Seg Neutrophils # 7.1 K/mm3 (1.8-7.7) 08/05/17 08:54 Sodium 138 mmol/L (137-145) 08/05/17 08:54 Potassium 3.9 mmol/L (3.6-5.0) 08/05/17 08:54 Chloride 104.7 mmol/L (98-107) 08/05/17 08:54 Carbon Dioxide 20 mmol/L (22-30) L 08/05/17 08:54 Anion Gap 17 mmol/L 08/05/17 08:54 BUN 8 mg/dL (9-20) L 08/05/17 08:54 Creatinine 1.1 mg/dL (0.8-1.5) 08/05/17 08:54 Estimated GFR > 60 ml/min 08/05/17 08:54 BUN/Creatinine Ratio 7.27 % 08/05/17 08:54 Glucose 89 mg/dL (75-100) 08/05/17 08:54 Calcium 9.3 mg/dL (8.4-10.2) 08/05/17 08:54 Total Bilirubin 0.40 mg/dL (0.1-1.2) 08/05/17 08:54 AST 19 units/L (5-40) 08/05/17 08:54 ALT 23 units/L (7-56) 08/05/17 08:54 Alkaline Phosphatase 126 units/L (35-129) 08/05/17 08:54 Total Protein 8.3 g/dL (6.3-8.2) H 08/05/17 08:54 Albumin 4.2 g/dL (3.9-5) 08/05/17 08:54 Albumin/Globulin Ratio 1.0 % 08/05/17 08:54 Lipase 38 units/L (13-60) 08/05/17 08:54 Urine Color [place] (Yellow) 08/05/17 09:36 Urine Turbidity Clear (Clear) 08/05/17 09:36 Urine pH 5.0 (5.0-7.0) 08/05/17 09:36 Ur Specific [place] 1.031 (1.003-1.030) H 08/05/17 09:36 Urine Protein 100 mg/dl mg/dL (Negative) 08/05/17 09:36 Urine Glucose (UA) Neg mg/dL (Negative) 08/05/17 09:36 Urine Ketones Neg mg/dL (Negative) 08/05/17 09:36 Urine Blood Sm (Negative) 08/05/17 09:36 Urine Nitrite Neg (Negative) 08/05/17 09:36 Urine Bilirubin Neg (Negative) 08/05/17 09:36 Urine Urobilinogen < 2.0 mg/dL (<2.0) 08/05/17 09:36 Ur Leukocyte Esterase Neg (Negative) 08/05/17 09:36 Urine WBC (Auto) 21.0 /HPF (0.0-6.0) H 08/05/17 09:36 Urine RBC (Auto) 24.0 /HPF (0.0-6.0) 08/05/17 09:36 U Epithel Cells (Auto) 1.0 /HPF (0-13.0) 08/05/17 09:36 Urine Bacteria (Auto) 1+ /HPF (Negative) 08/05/17 09:36 Calcium Oxalate Crystal 2+ 08/05/17 09:36 Hyaline Casts 76 /LPF 08/05/17 09:36 Granular Casts 20 /LPF 08/05/17 09:36 - Medical Decision Making Patient is a 46-year-old male presents with kidney stone ED course: Patient received pain medication in ED. 1 L normal saline, Zofran , Rocephin also administered in ED CT scan shows, see results above CBC, CMP, urinalysis Urinalysis positive for bacteria and calcium oxalate. Patient was treated for urinary tract infection. Right ear. Differential and no antibiotics sent home with Discussed findings with the patient. Discussed patient to follow up with primary care physician. Vital signs are normal. 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 Patient is alert and oriented 3 and states nondistended instructions given. Critical care attestation.: If time is entered above; I have spent that time in minutes in the direct care of this critically ill patient, excluding procedure time. ED Disposition Clinical Impression: Gastroenteritis, Kidney stones, calcium oxalate Disposition: DC-01 TO HOME OR SELFCARE Is pt being admited?: No Does the pt Need Aspirin: No Condition: Stable Instructions: Kidney Stones (ED), Urinary Tract Infection in Men (ED), Gastroenteritis (ED) Prescriptions: Loperamide [Imodium] 2 mg PO Q6HR PRN #7 capsule PRN Reason: Diarrhea Ondansetron [Zofran Odt] 4 mg PO QID PRN #20 tab.rapdis PRN Reason: Nausea traMADol [Ultram 50 MG tab] 50 mg PO Q6HR PRN #10 tablet PRN Reason: Pain Referrals: PRIMARY CARE, [Primary Care Provider] - 3-5 Days LAUREEN MOTLEY MD [Referring] - 3-5 Days ERIS MCBRIDE MD [Referring] - 3-5 Days Forms: Accompanied Note, Work/School Release Form(ED) Time of Disposition: 13:30
[2017-08-05] MEDS ORDERED: NACL 0.9% 1000 ML 1,000 ML IV ONE (12:12)
[2017-08-05] MEDS ORDERED: ZOFRAN IV ONE (12:12)
[2017-08-05] MEDS ORDERED: ZOFRAN ONE (12:15)
[2017-08-05] MEDS ORDERED: NACL 0.9% 1000 ML 1,000 ML ONE (12:16)
--- NOTE | 2017-08-05 12:54 | Cat Scan Report ---
CT OF THE ABDOMEN AND PELVIS WITHOUT CONTRAST HISTORY: Right lower quadrant abdominal pain. TECHNIQUE: Helical CT without contrast. Sagittal and coronal reformatted images. FINDINGS: Compared to 07/26/17. There is moderate to large fluid throughout the distal small bowel loops and colon which could represent an ileus or gastroenteritis. There is no evidence for focal bowel wall thickening, obstruction or free air. The appendix is within normal limits. The kidneys are normal size, contour and position. There are a few small nonobstructing calyceal stones in both kidneys. No evidence for cystic disease, mass or perinephric fluid. Within the limits of a noncontrast exam, the remaining abdominal and pelvic viscera are within normal limits. The liver, biliary system, pancreas, spleen, adrenal glands and bladder are unremarkable. The aorta is normal caliber. No ascites, bulky adenopathy or inflammatory changes. The lung bases are clear. Normal heart size. No suspicious bony lesion. IMPRESSION: Fluid filled loops of distal small bowel and colon suggestive of an ileus or gastroenteritis. No acute inflammatory process is appreciated. Few scattered tiny renal stones, nonobstructing.
[2017-08-05] MEDS ORDERED: XYLOCAINE 1% MPF 5 mL INFILTRATI ONE (13:26)
[2017-08-05] MEDS ORDERED: ROCEPHIN ONE (13:48)
[2017-08-05 14:17] VITALS: BP 97/57
[2017-08-05] MEDS ORDERED: ROCEPHIN 250 MG in NACL 0.9% 50 ML IV ONE (14:26)
== END 2017-08-05 14:40 | disposition home or self-care (01) ==
LOC: ED 08:32
DX: K52.9 Noninfective gastroenteritis and colitis, unspecified (principal); N20.0 Calculus of kidney; F41.9 Anxiety disorder, unspecified; F17.200 Nicotine dependence, unspecified, uncomplicated; F43.10 Post-traumatic stress disorder, unspecified; F32.9 Major depressive disorder, single episode, unspecified
CPT/HCPCS: 36415; 74176; 80053; 81001; 83690; 85025; 96361; 96365; 96375; 99284; J0696; J2270; J2405; J7030